=== PATIENT | female | born 1940 | race Caucasian/White ===

== ENCOUNTER 2021-06-19 19:46 | Emergency (ER) | payer MEDICARE, OTHER ==
[2021-06-19] MEDS ORDERED: Bacitracin Oint 1 GM U/D Packet TOP ONE (20:45)
[2021-06-19] MEDS ORDERED: Lidocaine 1% with EPINEPHrine 1:100,000 20 ML MDV INJECT ONE (20:45)
[2021-06-19 20:54] LABS: ANION GAP 13.1 mEq/L (7-13); CHLORIDE,CL 103 mmol/L (98-107); SODIUM,NA 140 mmol/L (136-145)
[2021-06-19 22:30] VITALS: BP 142/78; PULSE 68
== END 2021-06-19 22:19 | disposition home or self-care (01) ==
LOC: DL.ED 19:46
DX: S42.491A Other displaced fracture of lower end of right humerus, initial encounter for closed fracture (principal); S01.311A Laceration without foreign body of right ear, initial encounter; E11.9 Type 2 diabetes mellitus without complications; I10 Essential (primary) hypertension; E66.9 Obesity, unspecified; Z68.30 Body mass index [BMI] 30.0-30.9, adult; Z79.82 Long term (current) use of aspirin; W22.09XA Striking against other stationary object, initial encounter
CPT/HCPCS: 12013; 36415; 70450; 73060-RT; 73090-RT; 80053; 85025; 85610; 93005; 93010; 99284; 99284-25

== ENCOUNTER 2025-01-04 04:01 | Emergency (ER) | payer MEDICARE, OTHER ==
[2025-01-04] MEDS: Diphtheria,Pertussis(Acell),Tetanus Vaccine 0.5 ML Syringe IM ONE (06:56)
[2025-01-04] MEDS: Bacitracin Oint 1 GM U/D Packet TOP ONE (06:57)
== END 2025-01-04 06:59 | disposition home or self-care (01) ==
LOC: DL.ED 04:01
DX: S01.511A Laceration without foreign body of lip, initial encounter (principal); R04.0 Epistaxis; I10 Essential (primary) hypertension; E11.9 Type 2 diabetes mellitus without complications; Z79.899 Other long term (current) drug therapy; Z79.82 Long term (current) use of aspirin; Z79.4 Long term (current) use of insulin; Z90.49 Acquired absence of other specified parts of digestive tract; W18.2XXA Fall in (into) shower or empty bathtub, initial encounter
CPT/HCPCS: 12011; 70450; 72125; 90471; 90715; 99283; A9270; J2003